=== PATIENT | male | born 1995 | race Caucasian/White ===

== ENCOUNTER → 2018-07-12 | Day surgery (SDC) | payer OTHER ==
[~2018-07-12] MED LIST: IV RINGERS,LACTATED 1000ML 1,000 ML IV SCH; LIDOCAINE 2% PF 5 ML VIAL. ONE; PANT20TA2 PO; PROPOFOL 60 ML IV ONE; SERT25TA PO
[2018-07-12 10:39] VITALS: BP 134/76
--- NOTE | 2018-07-13 16:07 | PATHOLOGY ---
[facility] Accession Number: [id number] . 01 Material submitted: . PART A: small bowel - SMALL BOWEL BIOPSY PART B: duodenum bulb - DUODENAL BULB BIOPSY PART C: stomach - RANDOM GASTRIC BIOPSY PART D: esophagus - GE JUNCTION BIOPSY . 01 Clinical history: . Abdominal pain . 02 Diagnosis: A. Small bowel biopsies: - No significant pathologic abnormalities. . B. Duodenal biopsy, duodenal bulb: - Gastric heterotopia. . C. Random gastric biopsies: - Mild antral chronic gastritis. . D. Gastroesophageal junction biopsies: - Segment of esophagogastric mucosa showing chronic inflammation and three segments of gastric mucosa showing focal mild chronic inflammation. (JPM:pit 07/13/2018) P/07/13/2018 . 02 Comment: Sections of the small bowel biopsy reveal segments of small intestine mucosa. Where best oriented, the mucosal villi show no sprue-like changes or significant inflammatory changes. . Sections of the duodenal bulb biopsy show gastric heterotopia. There are no sprue-like changes or significant inflammatory changes. . Sections of the random gastric biopsy reveal segments of gastric body and gastric antral mucosa. The gastric body mucosa shows superficial congestion and no significant inflammation. The gastric antral mucosa shows congestion and mild chronic inflammation. A properly controlled immunoperoxidase stain for Helicobacter is negative for Helicobacter organisms. . Sections of the gastroesophageal junction biopsy reveal a segment of esophagogastric mucosa showing moderate chronic inflammation and three segments of gastric mucosa showing congestion and focal mild chronic inflammation. The squamous esophageal mucosa is hyperplastic. There is no evidence of Zhong's change, dysplasia, or malignancy. (JPM:pit 07/13/2018) . Special stain performed: Immunoperoxidase stain for Helicobacter on C1. . 02 Electronically signed: . Dev Powers MD, Pathologist NPI- [id number] . 01 Gross description: . A. The specimen is received in formalin, labeled "Sushil Carbajal, small bowel, BX", are 2 irregular fragments of hernandez soft tissue measuring 0.5 cm and 0.7 cm in greatest dimension, entirely submitted in A1. . B. The specimen is received in formalin, labeled "Sushil Carbajal, duodenal bulb, BX", is a hernandez soft tissue measuring 0.3 x 0.2 cm, entirely submitted in B1. . C. The specimen is received in formalin, labeled "Sushil Carbajal, random gastric BX, rule out H. pylori", are few irregular fragments of hernandez mucosal tissues measuring 0.6 x 0.5 x 0.1 cm in aggregate, entirely submitted in C1. . D. The specimen is received in formalin, labeled "Sushil Carbajal,GE junction BX", are 2 hernandez-cazares mucosal tissues measuring 0.4 and 0.6 cm in greatest dimension, entirely submitted in D1. ([facility]; 07/12/2018) [facility] . 02 Pathologist provided ICD-10: K29.50, K20.8, Q45.8 . 02 CPT . 944156, 112518, 828907, [id number], [id number] Specimen Comment: A courtesy copy of this report has been sent to Specimen Comment: [phone], . Specimen Comment: Report sent to / DR GUY Specimen Comment: A duplicate report has been generated due to demographic updates. Performed at: 01 [facility] [place] [address], [place], [place] [id number] MD Gibson Patino MD Phone: [phone] Performed at: 02 [facility] [address], [place] [id number] MD Dev Powers MD Phone: [phone]
== END | disposition home or self-care (01) ==
LOC: SURG 09:01
PROVIDERS: ATTEND Internal Medicine
DX: K31.89 Other diseases of stomach and duodenum (principal); K22.8 Other specified diseases of esophagus; K29.50 Unspecified chronic gastritis without bleeding; Q40.2 Other specified congenital malformations of stomach; Z88.0 Allergy status to penicillin; F41.9 Anxiety disorder, unspecified; K21.9 Gastro-esophageal reflux disease without esophagitis; Z83.71 Family history of colonic polyps; Z82.49 Family history of ischemic heart disease and other diseases of the circulatory system; Z72.89 Other problems related to lifestyle; Z79.899 Other long term (current) drug therapy; Z98.890 Other specified postprocedural states
CPT/HCPCS: 43239; 88305; 88342; J2001; J2704